=== PATIENT | male | born 1980 | race Asian ===

== ENCOUNTER 2024-01-02 20:09 | Emergency (ER) | payer OTHER, MEDICAID ==
[~2024-01-02] VITALS: Ht 177.8 cm; Wt 82.0 kg
[2024-01-02 20:26] VITALS: BP 130/82; PULSE 100; RESP 18; TEMP 98.3; O2SAT 100
== END 2024-01-03 04:15 | disposition home or self-care (01) ==
LOC: ER 20:09
DX: T43.651A Poisoning by methamphetamines accidental (unintentional), initial encounter (principal); F20.9 Schizophrenia, unspecified; F15.90 Other stimulant use, unspecified, uncomplicated; Y92.89 Other specified places as the place of occurrence of the external cause
CPT/HCPCS: 99283